=== PATIENT | male | born 1975 | race Caucasian/White ===

== ENCOUNTER 2019-01-19 11:04 | Emergency (ER) | payer OTHER ==
[~2019-01-19] VITALS: Ht 170.2 cm; Wt 94.7 kg
[2019-01-19 11:16] VITALS: Ht 170.2 cm; Wt 94.7 kg
--- NOTE | 2019-01-19 11:33 | ERD ---
ER Documentation Chief Complaint Chief Complaint abdominal pain w/nausea worse after eating x3 days HPI The patient is a 43-year-old male, presenting to the ER because of epigastric abdominal pain intermittently radiating up to the chest, worse after eating and heavy lifting, constipation for 1 week. He denies headache, fever, chills, neck pain, dyspnea, vomiting, dysuria. He smokes and drinks socially, denies illicit drug Medical/surgical history: None ROS All systems reviewed and are negative except as per history of present illness. Medications Home Meds Reported Medications Aspirin* (Aspirin* EC) 81 Mg Tablet.dr, 81 MG PO Q 7D, TAB 01/19/19 Allergies Allergies: Coded Allergies: peanut (Verified Allergy, Unknown, 01/19/19) shrimp (Verified Allergy, Unknown, 01/19/19) Physical Exam Vitals Vital Signs Date Temp Pulse Resp B/P (MAP) Pulse Ox O2 O2 Flow FiO2 Time Delivery Rate 01/19/19 86 18 136/94 99 Room Air 12:50 (108) 01/19/19 98.5 112 18 150/85 100 11:16 (106) Physical Exam Const: No acute distress. Head: Atraumatic. Eyes: Normal Conjunctiva. ENT: Normal External Ears, Nose and Mouth. Neck: Full range of motion. No meningismus. Resp: Clear to auscultation bilaterally. Cardio: Regular rate and rhythm. Abd: Soft, non distended, normal bowel sounds, non tender. Skin: No petechiae or rashes. Back: No midline or flank tenderness. Ext: No cyanosis, or edema. Neur: Awake and alert. No focal deficit Psych: Normal Mood and Affect. Result Diagram: 01/19/19 1159 01/19/19 1159 Results 24 hrs Laboratory Tests Test 01/19/19 11:59 01/19/19 13:10 01/19/19 14:56 White Blood Count 10.0 10^3/ul Red Blood Count 4.69 10^6/ul Hemoglobin 14.2 g/dl Hematocrit 43.2 % Mean Corpuscular Volume 92.1 fl Mean Corpuscular Hemoglobin 30.3 pg Mean Corpuscular 32.9 g/dl Hemoglobin Concent Red Cell Distribution Width 13.2 % Platelet Count 220 10^3/UL Mean Platelet Volume 9.8 fl Immature Granulocytes % 0.300 % Neutrophils % 57.4 % Lymphocytes % 32.5 % Monocytes % 6.6 % Eosinophils % 2.7 % Basophils % 0.5 % Nucleated Red Blood Cells % 0.0 /100WBC Immature Granulocytes # 0.030 10^3/ul Neutrophils # 5.8 10^3/ul Lymphocytes # 3.3 10^3/ul Monocytes # 0.7 10^3/ul Eosinophils # 0.3 10^3/ul Basophils # 0.1 10^3/ul Nucleated Red Blood Cells # 0.0 10^3/ul Sodium Level 144 mmol/L Potassium Level 4.0 mmol/L Chloride Level 110 mmol/L Carbon Dioxide Level 26 mmol/L Anion Gap 8 Blood Urea Nitrogen 13 mg/dl Creatinine 0.97 mg/dl Est Glomerular Filtrat > 60 mL/min Rate mL/min Glucose Level 87 mg/dl Calcium Level 8.8 mg/dl Total Bilirubin 0.4 mg/dl Direct Bilirubin 0.00 mg/dl Indirect Bilirubin 0.4 mg/dl Aspartate Amino Transf (AST/SGOT) 25 IU/L Alanine 38 IU/L Aminotransferase (ALT/SGPT) Alkaline Phosphatase 61 IU/L Troponin I < 0.012 ng/ml < 0.012 ng/ml Total Protein 7.3 g/dl Albumin 4.2 g/dl Globulin 3.10 g/dl Albumin/Globulin Ratio 1.35 Lipase 85 U/L Bedside Urine pH (LAB) 6.0 Bedside Urine Protein (LAB) Trace Bedside Urine Glucose (UA) Negative Bedside Urine Ketones (LAB) Negative Bedside Urine Blood Trace-intact Bedside Urine Nitrite (LAB) Negative Bedside Urine Leukocyte Esterase Negative (L Current Medications Medications Dose Sig/Jose Start Time Status Last (Trade) Ordered Route PRN Stop Time Admin Dose Reason Admin Ketorolac 30 mg ONCE STAT 01/19/19 DC 01/19/19 Tromethamine IV 11:39 12:51 (Toradol) 01/19/19 11:41 Procedures/MDM [place] [id number] Radiology Main Line: [phone] DIAGNOSTIC IMAGING REPORT Patient: GALEN MARCOS : 1975 Age: 43 Sex: M MR #: [id number] DOS: 01/19/19 1139 Ordering MD: REDDY VIEIRA MD Location: E/R Room/Bed: PROCEDURE: XR chest. CLINICAL INDICATION: Abdominal pain TECHNIQUE: Frontal view of the chest was obtained. COMPARISON: None. FINDINGS: Cardiomediastinal silhouette is normal. There is no pneumothorax or pleural effusion. Right lung is clear. There is minimal left basilar atelectasis. IMPRESSION: 1. Minimal left basilar atelectasis. RPTAT: DD Physician Tanya Date Time Electronically viewed and signed by Kiera Castorena Physician on 01/19/2019 12:17 RM/ CC: REDDY VIEIRA MD [id number] [place] [id number] Radiology Main Line: [phone] DIAGNOSTIC IMAGING REPORT Patient: GALEN MARCOS : 1975 Age: 43 Sex: M MR #: [id number] DOS: 01/19/19 1139 Ordering MD: REDDY VIEIRA MD Location: E/R Room/Bed: PROCEDURE: US abdomen limited CLINICAL INDICATION: Abdominal pain. TECHNIQUE: Multiple real-time sonographic images of the right upper quadrant of the abdomen were obtained. COMPARISON: None. FINDINGS: Liver parenchymal echogenicity is increased. Liver measures 16.1 cm in length. There is no visible focal liver lesion. There is no intrahepatic biliary ductal dilatation. Common bile duct measures 3 mm in diameter, within normal limits. There is a 3 mm gallbladder polyp or adherent gallstone. There is no gallbladder wall thickening or pericholecystic fluid. No ascites is seen. Pancreas is mostly obscured by the overlying bowel gas. Images of the right kidney demonstrate no hydronephrosis. Right kidney measures 10.7 cm. IMPRESSION: 1. Mild hepatomegaly and diffuse hepatic steatosis. No visible focal liver lesion or biliary ductal dilatation. 2. Small gallbladder polyp or adherent gallstone without sonographic evidence of acute cholecystitis. RPTAT:HAJM Physician Tanya Date Time Electronically viewed and signed by Kiera Castorena Physician on 01/19/2019 13:08 RM/ CC: REDDY VIEIRA MD [id number] EKG: At 11:57 AM read by emergency physician Rate/Rhythm: Normal Sinus Rhythm 98 beats/min QRS, ST, T-waves: No ST elevation, no T inversion Impression: Normal EKG EKG: At 1:42 PM read by emergency physician Rate/Rhythm: Normal Sinus Rhythm 80 beats/min QRS, ST, T-waves: No ST elevation, no T inversion Impression: Normal EKG MEDICAL MAKING DECISION: The patient is a 43-year-old male, presenting with acute biliary colic, acute chest pain most likely due to acute biliary colic and anxiety. He was treated with Toradol 30 mg IV for pain with good response The differential diagnoses considered include but are not limited to acute coronary syndrome, acute myocardial infarction, pericarditis, pulmonary embolism, aortic dissection, pneumonia, pleural effusion, pneumothorax, GERD, ch est wall pain. The patient presents with chest pain and I considered pulmonary embolism, aortic dissection, pneumothorax among other diagnoses. Evaluation for acute coronary syndrome was performed. The HEART score (www.mdcalc.com) was utilized for risk stratification and found to be <= 3. Repeat EKG and troponin @ 3 hours were unchanged. Based on this evaluation the patients risk of major adverse cardiac events is <1%. Shared decision making occurred with patient and the decision has been made to discharge the patient for outpatient evaluation and functional study within 72 hours. Departure Diagnosis: Primary Impression: Chest pain Additional Impression: Biliary colic Condition: Good Comments The patient's blood pressure was elevated (>120/80) but appears stable without evidence of hypertension emergency or urgency. The patient was counseled about the risks of hypertension and urged to pursue outpatient monitoring and therapy within a week with their primary care physician. I discussed the findings with the patient. I advised the patient to follow-up with the primary physician in about 2-3 days for reeval and referral to general surgery for eval for elective cholecystectomy and cardiology for further testing, sooner if needed and return if any concern. Disclaimer: Inadvertent spelling and grammatical errors are likely due to EHR/dictation software use and do not reflect on the overall quality of patient care. Also, please note that the electronic time recorded on this note does not necessarily reflect the actual time of the patient encounter. REDDY VIEIRA MD Jan 19, 2019 11:33
[2019-01-19] MEDS ORDERED: KETOROLAC 30 MG INJ IV STA (11:39)
[2019-01-19] MEDS ORDERED: ASPI-817 PO (13:50)
[2019-01-19 16:35] VITALS: BP 117/65; PULSE 65; RESP 18
== END 2019-01-19 16:37 | disposition home or self-care (01) ==
LOC: E/R 11:04
DX: K80.50 Calculus of bile duct without cholangitis or cholecystitis without obstruction (principal); R07.9 Chest pain, unspecified; Z91.010 Allergy to peanuts
CPT/HCPCS: 36415; 71045; 76705; 80053; 81003; 83690; 84484; 85025; 93005; 96374; J1885; Z7502